=== PATIENT | female | born 1970 | race Caucasian/White ===

== ENCOUNTER 2016-11-08 07:34 | Emergency (ER) | payer BC ==
[~2016-11-08] VITALS: Ht 167.6 cm; Wt 90.7 kg
[2016-11-08 07:34] VITALS: BP 146/80
[~2016-11-08 07:34] MED LIST: ACETAMINOPHEN325 M1 PO; AFRIN120 MG PO; AMOXICILLIN500 M1 PO; IBUPROFEN 800800 MG PO; NORCO 5-325 TA1 EACH PO; NORFLEX100 MG PO; SYNTHROID88 MCG PO
[2016-11-08] MEDS ORDERED: EFFEXOR PO (08:06)
[2016-11-08] MEDS ORDERED: PREVACID15 MG PO (08:06)
[2016-11-08] MEDS ORDERED: FLONASE 0.05%50 MCG NASAL (08:08)
[2016-11-08] MEDS ORDERED: LEVOTHYROXIN0.075 MG PO (08:09)
[2016-11-08] MEDS ORDERED: NORCO 5-325 TA1 EACH PO (08:10)
[2016-11-08] MEDS ORDERED: IBUPROFEN 600600 M1 PO (08:10)
== END 2016-11-08 08:35 | disposition home or self-care (01) ==
LOC: ER 07:34
DX: S40.011A Contusion of right shoulder, initial encounter (principal); Z91.018 Allergy to other foods; Z87.891 Personal history of nicotine dependence; W10.9XXA Fall (on) (from) unspecified stairs and steps, initial encounter; Y93.89 Activity, other specified; Y92.89 Other specified places as the place of occurrence of the external cause; Y99.9 Unspecified external cause status